=== PATIENT | female | born 1985 | race Caucasian/White ===

== ENCOUNTER 2018-08-08 01:03 | Emergency (ER) | payer OTHER ==
[~2018-08-08] VITALS: Wt 70.4 kg
--- NOTE | 2018-08-08 06:20 | ERD ---
ER Documentation Chief Complaint Chief Complaint LUMP UNDER RIGHT BREAST WITH PAIN X'S 3 DAYS HPI Patient is a 32-year-old female who presents the ER for concerns of a bump in her right breast. Patient states she noticed a lump 1 year ago. She states she did have an ultrasound done at that time she was told it was benign. Patient states over the last 2 days she is noticed that the bump has returned and it is more painful. Patient denies any fevers or chills. Patient denies any nipple bleeding or discharge. Patient has not had a mammogram. Patient states she do es have family history of breast cancer. Patient denies any left-sided chest pain, shortness of breath, nausea, vomiting or LOC. ROS All systems reviewed and are negative except as per history of present illness. Medications Home Meds Active Scripts Ibuprofen* (Motrin*) 600 Mg Tab, 600 MG PO Q6, #30 TAB Prov:CARLOS EDUARDO KEATING PA-C 08/08/18 PMhx/Soc Medical and Surgical Hx: pt denies Medical Hx, pt denies Surgical Hx Hx Alcohol Use: No Hx Substance Use: No Hx Tobacco Use: No FmHx Family History: No diabetes Physical Exam Vitals Vital Signs Date Temp Pulse Resp B/P (MAP) Pulse Ox O2 O2 Flow FiO2 Time Delivery Rate 08/08/18 97.4 67 18 133/72 99 01:11 (92) Physical Exam GENERAL: Well-developed, well-nourished female. Appears in no acute distress. Speaking in full sentences. HEAD: Normocephalic, atraumatic. EYES: Pupils are equally reactive bilaterally. EOMs grossly intact. No conjunctival erythema. ENT: Moist mucous membranes. No uvula deviation. No kissing tonsils. NECK: Supple. No meningismus. Normal range of motion of the neck. LUNG: Clear to auscultation bilaterally. No rhonchi, wheezing, rales or coarse breath sounds. HEART: Regular rate and rhythm. No murmurs, rubs or gallops. R BREAST: Palpable lumps needed in the 7 o'clock position. Small, movable, tend er. Breast is not erythematous or warm. No nipple discharge or bleeding. No streaking. No palpable lymph nodes in the axilla. EXTREMITIES: Equal pulses bilaterally. No peripheral clubbing, cyanosis or edema. No unilateral leg swelling. NEUROLOGIC: Alert and oriented. Moving all four extremities without any difficulty. Normal speech. Steady gait. SKIN: Normal color. Warm and dry. No rashes or lesions. Results 24 hrs Laboratory Tests Test 08/08/18 05:07 08/08/18 05:09 Bedside Urine pH (LAB) 7.0 Bedside Urine Protein (LAB) Negative Bedside Urine Glucose (UA) Negative Bedside Urine Ketones (LAB) Negative Bedside Urine Blood Negative Bedside Urine Nitrite (LAB) Negative Bedside Urine Leukocyte Esterase (L Negative POC Beta HCG, Qualitative NEGATIVE Procedures/MDM ED COURSE: The patient was stable throughout ED course. I kept the patient and/or family informed of laboratory and diagnostic imaging results throughout the ED course. DIAGNOSTIC IMAGING: Read by radiologist. Patient: LILIA HUDDLESTON : 1985 Age: 32 Sex: F MR #: [id number] DOS: 08/08/18 0527 Ordering MD: CARLOS EDUARDO KEATING PA-C Location: [facility] Room/Bed: PROCEDURE: US right breast. CLINICAL INDICATION: Right-sided breast pain, denies discharge, never had a mammogram. TECHNIQUE: Multiple real-time images were acquired of the patient's right breast utilizing a high resolution transducer. COMPARISON: None FINDINGS: There are no discrete collections identified within the right breast. There are small cysts noted within the right breast. A cyst measuring 7 x 5 x 6 mm is loca kasi approximately 1.5 cm from the nipple. A cyst measuring 10 x 5 x 6 mm in is located approximately 1 cm from the nipple. IMPRESSION: Small cysts in the right breast without definitive mass lesion or collection. After resolution of acute symptoms diagnostic mammography is recommended for further evaluation. RPTAT: HAP Admitmaranda Good Physician Date Time Electronically viewed and signed by Ger Good Physician on 08/08/2018 06:29 AP/ CC: CARLOS EDUARDO KEATING PA-C [id number] MEDICAL DECISION MAKING: Patient is a 32-year-old female presents the ER for concerns of right breast lumps. Patient states she initially noticed symptoms 1 year ago. Over the last few days she is noticed that her breasts have become more painful.. Vital signs were reviewed. Patient is afebrile. Patient was not hypoxic. Patient was hemodynamically stable. Breast ultrasound was obtained. See results above. Patient was advised to follow-up with [facility] and her primary care physician for mammogram on outpatient basis. Low suspicion for deep space infection, mastitis, ACS. Patient was nontoxic, [id number] prior to discharge. PRESCRIPTION: Ibuprofen DISCHARGE: At this time, patient is stable for discharge and outpatient management. I have instructed the patient to follow-up with his/her primary care physician in 1-2 days. I have discussed with the patient the possibility of needing to see a specialist for further workup and imaging studies if symptoms persist. I have instructed the patient to promptly return to the ER for any new or worsening symptoms including increased pain, fever, nausea, vomiting, weakness or LOC. The patient and/or family expressed understanding of and agreement with this plan. All questions were answered. Home care instructions were provided. Disclaimer: Inadvertent spelling and grammatical errors are likely due to EHR/dictation software use and do not reflect on the overall quality of patient care. Also, please note that the electronic time recorded on this note does not necessarily reflect the actual time of the patient encounter. Departure Diagnosis: Primary Impression: Breast pain Condition: Fair Patient Instructions: Breast Mass, Uncertain Cause Referrals: [facility] YOU HAVE RECEIVED A MEDICAL SCREENING EXAM AND THE RESULTS INDICATE THAT YOU DO NOT HAVE A CONDITION THAT REQUIRES URGENT TREATMENT IN THE EMERGENCY DEPARTMENT. FURTHER EVALUATION AND TREATMENT OF YOUR CONDITION CAN WAIT UNTIL YOU ARE SEEN IN YOUR DOCTORS OFFICE WITHIN THE NEXT 1-2 DAYS. IT IS YOUR RESPONSIBILITY TO MAKE AN APPOINTMENT FOR FOLOW-UP CARE. IF YOU HAVE A PRIMARY DOCTOR --you should call your primary doctor and schedule an appointment IF YOU DO NOT HAVE A PRIMARY DOCTOR YOU CAN CALL OUR PHYSICIAN REFERRAL HOTLINE AT IF YOU CAN NOT AFFORD TO SEE A PHYSICIAN YOU CAN CHOSE FROM THE FOLLOWING [facility] CLINICS [facility] [address] [facility]. [facility] [address] [facility]. [facility] [address] [facility]. [facility] [address] [facility]. [facility] [address] [facility]. [facility]. [address] [facility]. [facility] YOU HAVE RECEIVED A MEDICAL SCREENING EXAM AND THE RESULTS INDICATE THAT YOU DO NOT HAVE A CONDITION THAT REQUIRES URGENT TREATMENT IN THE EMERGENCY DEPARTMENT. FURTHER EVALUATION AND TREATMENT OF YOUR CONDITION CAN WAIT UNTIL YOU ARE SEEN IN YOUR DOCTORS OFFICE WITHIN THE NEXT 1-2 DAYS. IT IS YOUR RESPONSIBILITY TO MAKE AN APPOINTMENT FOR FOLOW-UP CARE. IF YOU HAVE A PRIMARY DOCTOR --you should call your primary doctor and schedule and appointment IF YOU DO NOT HAVE A PRIMARY DOCTOR YOU CAN CALL OUR PHYSICIAN REFERRAL HOTLINE AT . IF YOU CAN NOT AFFORD TO SEE A PHYSICIAN YOU CAN CHOSE FROM THE FOLLOWING [facility] INSTITUTIONS: [facility] [address] [place] [address] [facility] [address] [place] [address] [facility] + [facility] [address] [place] [address] Additional Instructions: Follow up with your primary care physician for mammogram. Call your primary care doctor TOMORROW for an appointment during the next 1-2 days.See the doctor sooner or return here if your condition worsens before your appointment time. CARLOS EDUARDO KEATING PA-C Aug 08, 2018 06:20
[2018-08-08] MEDS ORDERED: IBUP-1542 PO (06:48)
== END 2018-08-08 07:08 | disposition home or self-care (01) ==
LOC: FTE 01:03
DX: N64.4 Mastodynia (principal)
CPT/HCPCS: 76642; 81003; 81025